=== PATIENT | male | born 1935 | race Caucasian/White ===

== ENCOUNTER 2018-04-14 20:39 | Emergency (ER) | payer MEDICARE, OTHER ==
[2018-04-14] MEDS ORDERED: AMIODARONE HCL INJ 150 MG/3 ML VIAL IV ONE (20:43)
--- NOTE | 2018-04-14 20:55 | ER Document Report ---
ED General - General Stated Complaint: DIZZINESS Time Seen by Provider: 04/14/18 20:54 Notes: Patient is an 83-year-old male with a past medical history of CHF, diabetes, who presents after becoming lightheaded and presyncopal. EMS was contacted and found the patient to be in monomorphic ventricular tachycardia without associated hypotension. An amiodarone infusion was initiated with termination of the rhythm. The patient does report that he has had a history of ventricular tachycardia once in the past but was not placed on any anti- arithmetic agents and did not have placement of an AICD. He states that no point today nor currently does he have any chest pain or shortness of breath. He states that he was sitting down when his symptoms started and there was no obvious trigger. He states that he does still feel somewhat tired but overall improved since receiving amiodarone. 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 - Related Data Allergies/Adverse Reactions: Cephalosporins Allergy (Unknown, Verified 04/14/18 21:05) clindamycin [Clindamycin] Allergy (Unknown, Verified 04/14/18 21:05) Iodinated Contrast- Oral and IV Dye [IV Dye, Iodine Containing] Allergy (Unknown , Verified 04/14/18 21:05) phenazopyridine HCl [From Pyridium] Allergy (Unknown, Verified 04/14/18 21:05) sildenafil citrate [From Viagra] Allergy (Unknown, Verified 04/14/18 21:05) temazepam [From Restoril] Allergy (Unknown, Verified 04/14/18 21:05) Fish Containing Products Allergy (Verified 04/14/18 21:05) seafood Allergy (Unknown, Uncoded 04/14/18 21:05) Past Medical History - General Information source: Patient, Emergency Med Personnel - Social History Smoking Status: Never Smoker Frequency of alcohol use: None Drug Abuse: None Lives with: Spouse/Significant other Family History: Reviewed & Not Pertinent - Past Medical History Cardiac Medical History: Reports: Hx Coronary Artery Disease, Hx DVT, Hx Heart Attack, Hx Hypercholesterolemia, Hx Hypertension Endocrine Medical History: Reports: Hx Diabetes Mellitus Type 2 Musculoskeletal Medical History: Reports Hx Arthritis - Immunizations Hx Diphtheria, Pertussis, Tetanus Vaccination: No Review of Systems - Review of Systems Notes: Constitutional: Negative for fever. HENT: Negative for sore throat. Eyes: Negative for visual changes. Cardiovascular: Positive for palpitations and near syncope Respiratory: Negative for shortness of breath. Gastrointestinal: Negative for abdominal pain, vomiting or diarrhea. Genitourinary: Negative for dysuria. Musculoskeletal: Negative for back pain. Skin: Negative for rash. Neurological: Negative for headaches, weakness or numbness. 10 point ROS negative except as marked above and in HPI. Physical Exam - Vital signs Vitals: Pulse Ox 100 04/14/18 20:39 Interpretation: Hypertensive Notes: PHYSICAL EXAMINATION: GENERAL: Appears mildly uncomfortable but in no acute distress HEAD: Atraumatic, normocephalic. EYES: Pupils equal round and reactive to light, extraocular movements intact, sclera anicteric, conjunctiva are normal. ENT: nares patent, oropharynx clear without exudates. Moderately dry mucous membranes. NECK: Normal range of motion, supple without lymphadenopathy LUNGS: Breath sounds clear to auscultation bilaterally and equal. No wheezes rales or rhonchi. HEART: Regular rate and rhythm without murmurs ABDOMEN: Soft, nontender, normoactive bowel sounds. No guarding, no rebound. No masses appreciated. EXTREMITIES: Normal range of motion, no pitting or edema. No cyanosis. NEUROLOGICAL: No focal neurological deficits. Moves all extremities spontaneously and on command. PSYCH: Normal mood, normal affect. SKIN: Warm, Dry, normal turgor, no rashes or lesions noted. Course - Re-evaluation Re-evalutation: 04/14/18 20:54 Patient presents after having been in ventricular tachycardia. He was given 150 mg of amiodarone in route of ventricle tachycardia. At no point was he hypotensive. The patient does have a known history of congestive heart failure and is apparently had ventricular tachycardia in the past but has never had any ICD placed and is not on anti-arrhythmic agents. At time my evaluation the patient appears somewhat pale but is otherwise alert and oriented. Vitals are initially within acceptable limits with the exception of mild hypertension at 147 and 83. The patient has been started on amiodarone infusion. EKG strips from paramedics have been reviewed and are consistent with monomorphic ventricular tachycardia. Labs will be obtained. Will obtain chest x-ray. Patient will likely require transfer to a facility capable of placing an AICD. He is in guarded condition and will require frequent reassessments. 04/14/18 21:25 Patient remains hemodynamically within normal limits. Does have intermittent PVCs but no recurrent runs of ventricular tachycardia. Continues on amiodarone infusion. Will continue to reassess at regular intervals. 04/14/18 22:33 I have spoken with Rocky Harvey the physician news assistant covering for the cardiology service at [facility]. He states that the patient has a normal ejection fraction of 55%. That he does have a history of monomorphic ventricular tachycardia in the past and is following with their clinic for this issue. He is advised that the patient does not require transfer , has recommended transition the patient to oral amiodarone and discharged home with follow-up in clinic on Sunday. The patient has remained asymptomatic at this point, remains well in appearance, vital signs are normal limits, labs including troponin are otherwise unremarkable. He has continued to deny chest pain. Will proceed with discharge per the advisement of the cardiology consultation with a prescription for amiodarone and request for follow-up on Sunday with cardiology. 04/15/18 2300 Patient appears much improved, sitting up in bed, talking with his . We have reviewed my consultation with the physician news assistant covering for cardiology at [facility]. I have advised them of the plan and they are quite comfortable with this, plan on following up with cardiology tomorrow as planned. No concerns regarding discharge. At this time will discharge with return precautions and follow-up recommendations. Verbal discharge instructions given a the bedside and opportunity for questions given. Medication warnings reviewed. Patient is in agreement with this plan and has verbalized understanding of return precautions and the need for cardiology follow-up tomorrow. - Vital Signs Vital signs: Temp Pulse Resp BP Pulse Ox 98.3 F 21 H 129/73 H 95 04/14/18 20:44 04/14/18 23:31 04/14/18 23:31 04/14/18 23:31 - Laboratory Result Diagrams: 04/14/18 20:46 04/14/18 20:46 Laboratory results interpreted by me: 04/14/18 04/14/18 20:46 20:46 RBC 4.17 L RDW 14.8 H Plt Count 126 L BUN 33 H Glucose 116 H - Diagnostic Test Radiology reviewed: Image reviewed, Reports reviewed Radiology results interpreted by me: 04/14/18 22:34 Chest x-ray: No acute infiltrate or pneumothorax - EKG Interpretation by Me Additional EKG results interpreted by me: 04/14/18 22:36 Sinus rhythm. Rate 76. No ST elevations or depressions. QTC is 441. Critical Care Note - Critical Care Note Total time excluding time spent on procedures (mins): 36 Comments: Critical care time spent obtaining history from patient or surrogate, discussions with consultants, development of treatment plan with patient or surrogate, evaluation of patient's response to treatment, examination of patient , ordering and performing treatments and interventions, ordering and review of laboratory studies, re-evaluation of patient's condition, ordering and review of radiographic studies and review of old charts Discharge - Discharge Clinical Impression: Ventricular tachycardia, Near syncope Congestive heart failure Qualifiers: Heart failure type: unspecified Heart failure chronicity: chronic Qualified Code(s): I50.9 - Heart failure, unspecified Condition: Good Disposition: HOME, SELF-CARE Additional Instructions: Your seen today for an episode of ventricular tachycardia. I have spoken with the cardiology group at [facility] and they have advised that she should be discharged home on a new medication called amiodarone and follow-up in the clinic tomorrow, 04/15. Please return to the emergency department immediately if you develop chest pain, pass out, develop shortness of breath, or have any other symptoms that are worrisome to you. Prescriptions: Amiodarone HCl [Cordarone 200 mg Tablet] 2 tab PO BID #90 tab Referrals: HAMMAD LIU MD [Primary Care Provider] - Follow up as needed
[2018-04-14 21:16] LABS: ABSOLUTE EOSINOPHILS # (AUTO) 0.1 10^3/uL (0.0-0.6); ABSOLUTE MONOCYTES (AUTO) 0.6 10^3/uL (0.1-1.4); ABSOLUTE NEUT (AUTO) 6.2 10^3/uL (1.7-8.2); BASOPHILS % (AUTO) 0.3 % (0-2); EOSINOPHILS % (AUTO) 0.9 % (0-6); HEMATOCRIT 39.8 % (37.9-51.0); HEMOGLOBIN 13.7 g/dL (13.5-17.0); LYMPHOCYTES % (AUTO) 22.4 % (13-45); MEAN CORPUSCULAR HEMOGLOBIN 32.9 pg (27.0-33.4); MEAN CORPUSCULAR HGB CONC 34.5 g/dL (32.0-36.0); MEAN CORPUSCULAR VOLUME 96 fl (80-97); MONOCYTES % (AUTO) 7.2 % (3-13); PLATELET COUNT 126 10^3/uL (150-450); RED BLOOD COUNT 4.17 10^6/uL (4.35-5.55); RED CELL DISTRIBUTION WIDTH 14.8 % (11.5-14.0); SEGMENTED NEUTROPHILS % (AUTO) 69.2 % (42-78); TOTAL CELLS COUNTED % (AUTO) 100 %; WHITE BLOOD COUNT 8.9 10^3/uL (4.0-10.5)
[2018-04-14 21:21] LABS: ALANINE AMINOTRANSFERASE 22 U/L (21-72); ALBUMIN 3.8 g/dL (3.5-5.0); ALKALINE PHOSPHATASE 90 U/L (38-126); ANION GAP 11 (5-19); ASPARTATE AMINO TRANSFERASE 23 U/L (17-59); BILIRUBIN,DIRECT 0.3 mg/dL (0.0-0.4); BILIRUBIN,TOTAL 0.4 mg/dL (0.2-1.3); BLOOD UREA NITROGEN 33 mg/dL (7-20); CALCIUM 9.4 mg/dL (8.4-10.2); CARBON DIOXIDE 29 mmol/L (22-30); CHLORIDE 101 mmol/L (98-107); CREATINE KINASE 58 U/L (55-170); GLUCOSE 116 mg/dL (75-110); INTERNATIONAL RATION (INR) 1.01; POTASSIUM 4.7 mmol/L (3.6-5.0); PROTHROMBIN TIME 13.8 SEC (11.4-15.4); SODIUM 141.1 mmol/L (137-145)
--- NOTE | 2018-04-14 21:26 | RADIOLOGY REPORT (SQ) ---
EXAM DESCRIPTION: XR CHEST 1 VIEW COMPLETED DATE/TME: 04/14/2018 21:03 CLINICAL HISTORY: 83 years, Male, VT converted to NSR COMPARISON: EXAM DESCRIPTION: CLINICAL HISTORY: VT converted to NSR COMPARISON: None. FINDINGS: Single view of the chest is submitted. Cardiac silhouette is normal. No focal parenchymal or pleural disease. No acute bony abnormality. There is no significant pulmonary vascular engorgement. IMPRESSION: No evidence of acute cardiopulmonary disease. NUMBER OF VIEWS: TECHNIQUE: LIMITATIONS: None. FINDINGS: IMPRESSION: 2010 [facility] [employer]- All Rights Reserved
[2018-04-14 21:32] LABS: CREATINE KINASE MB 2.84 ng/mL (<4.55); TROPONIN I 0.015 ng/mL
[2018-04-14] MEDS ORDERED: ASPIRIN 81 MG TABLET, CHEWABLE PO ONE (22:15)
[2018-04-14] MEDS ORDERED: AMIODARONE HCL 200 MG TABLET PO ONE (22:40)
--- NOTE | 2018-04-14 22:45 | EKG REPORT ---
SEVERITY:- ABNORMAL ECG - SINUS RHYTHM NONSPECIFIC INTRAVENTRICULAR CONDUCTION DELAY : Confirmed by: Miriam Torres MD 14-Apr-2018 22:45:22
[2018-04-14 23:42] VITALS: BP 129/73
== END 2018-04-14 23:55 | disposition home or self-care (01) ==
LOC: ER 20:39
DX: I47.2 Ventricular tachycardia (principal); I50.9 Heart failure, unspecified; R42 Dizziness and giddiness; E11.9 Type 2 diabetes mellitus without complications; Z79.899 Other long term (current) drug therapy; I25.10 Atherosclerotic heart disease of native coronary artery without angina pectoris; I10 Essential (primary) hypertension
CPT/HCPCS: 93005; 99291; 96374; 36415; 82553; 82550; 85025; 85610; 80053; 84484; 71045; 93010; A9270; J0282

== ENCOUNTER 2018-10-18 12:02 | Emergency (ER) | payer MEDICARE, OTHER ==
[2018-10-18] MEDS ORDERED: DEXTROSE 50%-WATER 25 GM/50 ML DISP.SYRIN IV ONE (12:45)
[2018-10-18 13:08] LABS: ALANINE AMINOTRANSFERASE 24 U/L (21-72); ALBUMIN 4.1 g/dL (3.5-5.0); ALCOHOL < 10 mg/dL (NONE DETECTED); ALKALINE PHOSPHATASE 90 U/L (38-126); ANION GAP 11 (5-19); ASPARTATE AMINO TRANSFERASE 28 U/L (17-59); BILIRUBIN,DIRECT 0.4 mg/dL (0.0-0.4); BILIRUBIN,TOTAL 0.5 mg/dL (0.2-1.3); BLOOD UREA NITROGEN 34 mg/dL (7-20); CALCIUM 9.5 mg/dL (8.4-10.2); CARBON DIOXIDE 26 mmol/L (22-30); CHLORIDE 104 mmol/L (98-107); POTASSIUM 4.8 mmol/L (3.6-5.0); SODIUM 140.7 mmol/L (137-145); TOTAL PROTEIN 7.2 g/dL (6.3-8.2)
[2018-10-18 13:10] LABS: GLUCOSE 64 mg/dL (75-110)
--- NOTE | 2018-10-18 13:25 | RADIOLOGY REPORT (SQ) ---
EXAM DESCRIPTION: CHEST SINGLE VIEW COMPLETED DATE/TIME: 10/18/2018 1:08 pm REASON FOR STUDY: hypoxia COMPARISON: 04/14/2018, 2007. NUMBER OF VIEWS: One view. TECHNIQUE: Single frontal radiographic view of the chest acquired. LIMITATIONS: None. FINDINGS: LUNGS AND PLEURA: Chronic scarring in the left base. No evidence of pneumonia. MEDIASTINUM AND HILAR STRUCTURES: No masses or contour abnormality. HEART AND VASCULATURE: Cardiac enlargement. Vascular congestion. BONES: No acute findings. HARDWARE: None in the chest. OTHER: No other significant finding. IMPRESSION: CARDIAC ENLARGEMENT. VASCULAR CONGESTION. TECHNICAL DOCUMENTATION: JOB ID: [id number] [employer]- All Rights Reserved Reading location - IP/workstation name: [email or web address]
--- NOTE | 2018-10-18 15:11 | ER Document Report ---
ED Blood Sugar Problem - General Chief Complaint: Low Blood Sugar Stated Complaint: ALTERED MENTAL STATUS Time Seen by Provider: 10/18/18 12:29 Primary Care Provider: HAMMAD LIU MD [Primary Care Provider] - Follow up as needed Mode of Arrival: Medic Information source: Patient, Relative Notes: Patient is a 83 year old male brought in to ER by EMS for AMS. Blood sugar by EMS on arrival was 35. Given D-10 25 mg and BS increased to 144. Patient became more alert states she gave insulin this am without taking BS. Gave 44 units of Lantus and 10 units of Novalog. EMS reported O2 Sat at 81% on arrival. Patient is oxygen dependant especially at night. Not on O2 on arrival. Patient also has history of severe dementia. HTN and COPD. TRAVEL OUTSIDE OF THE [place] IN LAST 30 DAYS: No - HPI Onset: Just prior to arrival Onset/Duration: Sudden Quality of pain: No pain Severity: Moderate Pain Level: 3 Insulin taken: Yes Glucose taken: No Associated symptoms: Confusion, Dry mucous membranes, Increased thirst, Nausea, Weakness - Related Data Allergies/Adverse Reactions: Cephalosporins Allergy (Unknown, Verified 04/14/18 21:05) clindamycin [Clindamycin] Allergy (Unknown, Verified 04/14/18 21:05) Iodinated Contrast- Oral and IV Dye [IV Dye, Iodine Containing] Allergy (Unkn own, Verified 04/14/18 21:05) phenazopyridine HCl [From Pyridium] Allergy (Unknown, Verified 04/14/18 21:05) sildenafil citrate [From Viagra] Allergy (Unknown, Verified 04/14/18 21:05) temazepam [From Restoril] Allergy (Unknown, Verified 04/14/18 21:05) Fish Containing Products Allergy (Verified 04/14/18 21:05) seafood Allergy (Unknown, Uncoded 04/14/18 21:05) Past Medical History - General Information source: Relative, [facility] Records - Social History Smoking Status: Former Smoker Cigarette use (# per day): No Chew tobacco use (# tins/day): No Smoking Education Provided: No Frequency of alcohol use: None Drug Abuse: None Lives with: Spouse/Significant other Family History: Reviewed & Not Pertinent Patient has suicidal ideation: No Patient has homicidal ideation: No - Past Medical History Cardiac Medical History: Reports: Hx Atrial Fibrillation, Hx Congestive Heart Failure, Hx Coronary Artery Disease, Hx DVT, Hx Heart Attack, Hx Hypercholesterolemia, Hx Hypertension Endocrine Medical History: Reports: Hx Diabetes Mellitus Type 2 Renal/ Medical History: Denies: Hx Peritoneal Dialysis Musculoskeletal Medical History: Reports Hx Arthritis Past Surgical History: Reports: Hx Abdominal Surgery - Immunizations Hx Diphtheria, Pertussis, Tetanus Vaccination: No Review of Systems - Review of Systems Constitutional: No symptoms reported EENT: No symptoms reported Cardiovascular: No symptoms reported Respiratory: No symptoms reported Gastrointestinal: No symptoms reported Genitourinary: No symptoms reported Male Genitourinary: No symptoms reported Musculoskeletal: No symptoms reported Skin: No symptoms reported Hematologic/Lymphatic: No symptoms reported Neurological/Psychological: No symptoms reported, Confusion, Dementia, Weakness Physical Exam - Vital signs Vitals: Resp Pulse Ox 17 86 L 10/18/18 12:07 10/18/18 12:07 Interpretation: Normal - General General appearance: Alert. No: Unresponsive In distress: None - HEENT Head: Normocephalic, Atraumatic Eyes: Normal Conjunctiva: Normal Cornea: Normal Extraocular movements intact: Yes Nerve palsy: No Visual garcia normal: Yes Ears: Normal Tympanic membrane: Normal Sinus: Normal Nasal: Normal Mouth/Lips: Normal Mucous membranes: Dry Pharynx: Normal Neck: Normal - Respiratory Respiratory status: No respiratory distress Chest status: Nontender Breath sounds: Normal. No: Rales, Rhonchi, Wheezing Chest palpation: Normal - Cardiovascular Rhythm: Regular Heart sounds: Normal auscultation Murmur: No Friction rub: No Benita's crunch: No - Abdominal Inspection: Normal Distension: No distension Bowel sounds: Normal Tenderness: Nontender Organomegaly: No organomegaly - Genitourinary Inspection: Normal Tenderness: Nontender Cremasteric reflex: Normal Scrotum: Normal - Back Back: Normal, Nontender. No: CVA tenderness - Extremities General upper extremity: Normal inspection, Nontender General lower extremity: Normal inspection, Nontender - Neurological Neuro grossly intact: Yes Cognition: Normal Orientation: AAOx4 [place] Coma Scale Eye Opening: Spontaneous [place] Coma Scale Verbal: Oriented Kajal Coma Scale Motor: Obeys Commands [place] Coma Scale Total: 15 Speech: Normal - Psychological Associated symptoms: Normal affect, Normal mood - Skin Skin Temperature: Warm Skin Moisture: Dry Skin Color: Normal, [place] Skin Turgor: Elastic Course - Re-evaluation Re-evalutation: 10/24/18 18:27 Patient responded to bolus of D5 and eating. Came back to normal base line per . insisted on going home and given the circumstances I feel it is OK to DC. - Vital Signs Vital signs: Temp Pulse Resp BP Pulse Ox 97.9 F 18 140/55 H 98 10/18/18 15:32 10/18/18 15:02 10/18/18 15:02 10/18/18 15:02 - Laboratory Result Diagrams: 10/18/18 12:17 10/18/18 12:17 Laboratory results interpreted by me: 10/18/18 10/18/18 12:17 14:19 BUN 34 H Creatinine 1.31 H Est GFR (Non-Af Amer) 52 L Glucose 64 L POC Glucose 193 H Discharge - Discharge Clinical Impression: Hypoglycemia Condition: Stable Disposition: HOME, SELF-CARE Instructions: Hypoglycemia ([facility]) Additional Instructions: You have recovered quite substantially from your 31 blood sugar level on arrival here. Highly important that you might check your blood sugars more frequently through the next 24 hours so this does not happen again. Hold your insulin tonight. Contact your primary care provider to readjust your medications if needed by tomorrow and you are still running low on your blood sugars. Is better to be a little high than it is to be low. Should you have any concerns or problems or should you have change in mental status again return to ER for recheck. Referrals: HAMMAD LIU MD [Primary Care Provider] - Follow up as needed
[2018-10-18 15:32] VITALS: BP 140/55
--- NOTE | 2018-10-18 19:27 | EKG REPORT ---
SEVERITY:- ABNORMAL ECG - SINUS RHYTHM NONSPECIFIC INTRAVENTRICULAR CONDUCTION DELAY PROBABLE INFERIOR INFARCT, OLD : Confirmed by: Miriam Torres MD 18-Oct-2018 19:27:12
== END 2018-10-18 15:32 | disposition home or self-care (01) ==
LOC: ER 12:02
DX: E11.649 Type 2 diabetes mellitus with hypoglycemia without coma (principal); Z79.4 Long term (current) use of insulin; I10 Essential (primary) hypertension; I25.10 Atherosclerotic heart disease of native coronary artery without angina pectoris; J44.9 Chronic obstructive pulmonary disease, unspecified; Z99.81 Dependence on supplemental oxygen; Z88.1 Allergy status to other antibiotic agents; Z91.041 Radiographic dye allergy status; Z88.6 Allergy status to analgesic agent; Z87.891 Personal history of nicotine dependence; Z88.8 Allergy status to other drugs, medicaments and biological substances; Z91.013 Allergy to seafood
CPT/HCPCS: 93005; 99284; 96374; 36415; 82962; 80307; 83735; 80053; 71045; 93010; J3490

== ENCOUNTER 2019-01-03 11:04 | Emergency (ER) | payer MEDICARE, OTHER ==
--- NOTE | 2019-01-03 12:23 | RADIOLOGY REPORT (SQ) ---
EXAM DESCRIPTION: HIP BILATERAL COMPLETED DATE/TIME: 01/03/2019 12:07 pm REASON FOR STUDY: rotation COMPARISON: None. NUMBER OF VIEWS: Two views TECHNIQUE: AP pelvis and additional frog-leg view of both hips. LIMITATIONS: None. FINDINGS: MINERALIZATION: Normal. HIPS: No acute fracture or dislocation. Joint space narrowing with sclerosis and osteophytes, worse in the right hip. No worrisome bone lesions. PELVIS AND SACRUM: No acute fracture or dislocation. No worrisome bone lesions. PUBIS AND ISCHIUM: No acute fracture. LOWER LUMBAR SPINE: Degenerative changes. No acute findings as visualized. SOFT TISSUES: No findings. OTHER: No other significant finding. IMPRESSION: DEGENERATIVE CHANGES IN THE HIPS, WORSE ON THE RIGHT. NO ACUTE FINDINGS. TECHNICAL DOCUMENTATION: JOB ID: [id number] [employer]- All Rights Reserved Reading location - IP/workstation name: [email or web address]
[2019-01-03 15:04] LABS: ABSOLUTE EOSINOPHILS # (AUTO) 0.1 10^3/uL (0.0-0.6); ABSOLUTE LYMPHOCYTES (AUTO) 0.9 10^3/uL (0.5-4.7); ABSOLUTE MONOCYTES (AUTO) 0.2 10^3/uL (0.1-1.4); ABSOLUTE NEUT (AUTO) 3.8 10^3/uL (1.7-8.2); EOSINOPHILS % (AUTO) 1.2 % (0-6); HEMATOCRIT 30.2 % (37.9-51.0); HEMOGLOBIN 10.2 g/dL (13.5-17.0); LYMPHOCYTES % (AUTO) 18.2 % (13-45); MEAN CORPUSCULAR HEMOGLOBIN 31.2 pg (27.0-33.4); MEAN CORPUSCULAR HGB CONC 33.7 g/dL (32.0-36.0); MEAN CORPUSCULAR VOLUME 92 fl (80-97); MONOCYTES % (AUTO) 4.3 % (3-13); RED BLOOD COUNT 3.26 10^6/uL (4.35-5.55); RED CELL DISTRIBUTION WIDTH 15.5 % (11.5-14.0); SEGMENTED NEUTROPHILS % (AUTO) 75.3 % (42-78); TOTAL CELLS COUNTED % (AUTO) 100 %
[2019-01-03 15:06] LABS: APPEARANCE,URINE CLEAR; BILIRUBIN,URINE NEGATIVE (NEGATIVE); COLOR,URINE STRAW; GLUCOSE, URINE >=500 mg/dL (NEGATIVE); KETONES,URINE NEGATIVE (NEGATIVE); LEUKOCYTE ESTERASE,URINE NEGATIVE (NEGATIVE); NITRITE,URINE NEGATIVE (NEGATIVE); PROTEIN,URINE NEGATIVE (NEGATIVE); URINE SPECIFIC GRAVITY 1.003; UROBILINOGEN,URINE NEGATIVE mg/dL (<2.0)
[2019-01-03 15:26] LABS: PLATELET COUNT 62 10^3/uL (150-450)
[2019-01-03 16:37] LABS: ALBUMIN 3.9 g/dL (3.5-5.0); ALKALINE PHOSPHATASE 115 U/L (38-126); ANION GAP 10 (5-19); ASPARTATE AMINO TRANSFERASE 21 U/L (17-59); BILIRUBIN,DIRECT 0.3 mg/dL (0.0-0.4); BILIRUBIN,TOTAL 0.4 mg/dL (0.2-1.3); BLOOD UREA NITROGEN 37 mg/dL (7-20); CALCIUM 9.4 mg/dL (8.4-10.2); CARBON DIOXIDE 27 mmol/L (22-30); CHLORIDE 94 mmol/L (98-107); GLUCOSE 302 mg/dL (75-110); TOTAL PROTEIN 6.8 g/dL (6.3-8.2)
[2019-01-03 16:42] LABS: POTASSIUM 6.1 mmol/L (3.6-5.0)
[2019-01-03 17:09] VITALS: BP 155/69
--- NOTE | 2019-01-03 17:53 | ER Document Report ---
ED General - General Chief Complaint: Hip Injury Stated Complaint: RIGHT HIP PAIN Time Seen by Provider: 01/03/19 11:43 Primary Care Provider: HAMMAD MELVIN MD [Primary Care Provider] - Follow up as needed Notes: Patient took a shower and was being assisted out of the shower by his when his legs gave out and he fell, landing primarily on the left hip but complaining of pain in the right hip more than the left at this time. He has a long- standing history of weakness and difficulty ambulating and uses either a walker or a wheelchair to get around. He has not been any different than usual for him recently. Denies any other injuries except the hips. Patient has a history of anemia. He had blood drawn by his primary care provider about 3 days ago and the was called about the results of the hemo globin and the platelet count, both of which were low. I have spoken with Dr. Melvin in [facility] internal medicine who is the patient's primary care provider. He says that the patient had a hemoglobin of 10.9 earlier this week and his platelet count was 73,000. He has no obvious bleeding such as black stools, etc. Reviewing these lab results with Dr. Melvin show that the patient's actually had low platelets since about May of this year. He also had a hemoglobin of about 12.4 this past spring. However, he did have a value as low as 11.3 earlier this year. TRAVEL OUTSIDE OF THE [place] IN LAST 30 DAYS: No - Related Data Allergies/Adverse Reactions: Cephalosporins Allergy (Unknown, Verified 04/14/18 21:05) clindamycin [Clindamycin] Allergy (Unknown, Verified 04/14/18 21:05) Iodinated Contrast Media [IV Dye, Iodine Containing] Allergy (Unknown, Verified 04/14/18 21:05) phenazopyridine HCl [From Pyridium] Allergy (Unknown, Verified 04/14/18 21:05) sildenafil citrate [From Viagra] Allergy (Unknown, Verified 04/14/18 21:05) temazepam [From Restoril] Allergy (Unknown, Verified 04/14/18 21:05) Fish Containing Products Allergy (Verified 04/14/18 21:05) seafood Allergy (Unknown, Uncoded 04/14/18 21:05) Past Medical History - Social History Smoking Status: Former Smoker Frequency of alcohol use: None Drug Abuse: None Family History: Reviewed & Not Pertinent Patient has suicidal ideation: No Patient has homicidal ideation: No - Past Medical History Cardiac Medical History: Reports: Hx Atrial Fibrillation, Hx Congestive Heart Failure, Hx Coronary Artery Disease, Hx DVT, Hx Heart Attack, Hx Hypercholesterolemia, Hx Hypertension Pulmonary Medical History: Reports: Hx COPD Endocrine Medical History: Reports: Hx Diabetes Mellitus Type 2 Malignancy Medical History: Reports Hx Prostate Cancer, Reports Other - Bladder cancer Musculoskeletal Medical History: Reports Hx Arthritis Past Surgical History: Reports: Hx Abdominal Surgery, Hx Genitourinary Surgery, Hx Orthopedic Surgery - back surgery - Immunizations Hx Diphtheria, Pertussis, Tetanus Vaccination: No Review of Systems - Review of Systems Notes: REVIEW OF SYSTEMS: CONSTITUTIONAL : Denies fever. Has had weakness for a long time. EENT: Denies eye, ear, nose or mouth or throat pain or other symptoms. CARDIOVASCULAR: Denies chest pain. RESPIRATORY: Denies cough, chest congestion, or shortness of breath. GASTROINTESTINAL: Denies abdominal pain or nausea, vomiting, or diarrhea. GENITOURINARY: Denies difficulty or painful urinating, urinary frequency, blood in urine. MUSCULOSKELETAL: Denies back or neck pain. Says he has pain in both hips. SKIN: Denies rash or skin lesions. NEUROLOGICAL: Denies LOC or altered mental status. Denies headache. Denies sensory loss or motor deficits. ALL OTHER SYSTEMS REVIEWED AND NEGATIVE. Physical Exam - Vital signs Vitals: Temp Pulse Resp BP Pulse Ox 97.7 F 64 20 160/63 H 96 01/03/19 11:11 01/03/19 11:11 01/03/19 11:11 01/03/19 11:11 01/03/19 11:11 Interpretation: Normal Notes: PHYSICAL EXAMINATION: GENERAL: Well-appearing, in no acute distress. HEAD: Atraumatic, normocephalic. EYES: Pupils equal round and reactive to light, extraocular movements intact. ENT: oropharynx clear without exudates. Moist mucous membranes. NECK: Normal range of motion, supple. LUNGS: Breath sounds clear and equal bilaterally. HEART: Regular rate and rhythm without murmurs. ABDOMEN: Soft, nontender. No guarding or rebound. No masses. BACK: No tenderness throughout entire back. EXTREMITIES: Normal range of motion without pain. Does not have very much disc omfort to palpate firmly over both femoral heads and to internally and externally rotate both legs. NEUROLOGICAL: Normal speech, unable to stand and walk at this time. Normal sensory, motor, and reflex exams. Awake, alert, and oriented x3. History of some degree of dementia. SKIN: Warm, dry, no rashes. Course - Re-evaluation Re-evalutation: 01/03/19 18:13 When patient's potassium came back at 6.1, I began inquiring from the patient and his and found that the patient is on potassium supplement has been on it for years. In addition, he had blood work done earlier this week and the got a call saying that the potassium was too high and she was to cut his potassium from twice a day to once a day. I have advised her to stop his potassium entirely until Sunday and call his doctor on Sunday to get further advice at that time. I am questioning whether he needs to be on any potassium at all. Patient's EKG shows no evidence of the effects of high potassium. He has a EKG showing normal sinus rhythm, old inferior infarct, and intraventricular conduction defect of uncertain type. - Vital Signs Vital signs: Temp Pulse Resp BP Pulse Ox 98.0 F 65 20 155/69 H 95 01/03/19 17:36 01/03/19 17:36 01/03/19 11:11 01/03/19 17:01 01/03/19 17:36 - Laboratory Result Diagrams: 01/03/19 14:44 01/03/19 16:15 Laboratory results interpreted by me: 01/03/19 01/03/19 01/03/19 14:44 14:44 16:15 RBC 3.26 L Hgb 10.2 L Hct 30.2 L RDW 15.5 H Plt Count 62 L Sodium 130.5 L Potassium 6.1 H* Chloride 94 L BUN 37 H Creatinine 1.40 H Est GFR ( Amer) 59 L Est GFR (Non-Af Amer) 48 L Glucose 302 H Urine Glucose (UA) >=500 H - Diagnostic Test Radiology results interpreted by me: 01/03/19 18:16 X-ray of the hips and pelvis show no fractures or dislocations. - EKG Interpretation by Tx EKG shows normal: Sinus rhythm Rate: Normal Rhythm: NSR [place]/QRS: IVCD Additional EKG results interpreted by me: 01/03/19 18:18 EKG does not show any evidence of hyper hyperkalemia. Discharge - Discharge Clinical Impression: Fall, Contusion, hip, Weakness, Hyperkalemia Condition: Stable Disposition: HOME, SELF-CARE Additional Instructions: Contusion Hip Your injury has resulted in a contusion -- a crushing of the deep tissues. No injury to important structures was detected during the physician's exam. Contusions vary in the amount of pain they cause, and in the length of time re quired for healing. Typically, the area will become bruised, and will remain painful to touch for two or three weeks. However, most patients are back to working and playing within a few days. After the initial period of rest and cold-packs, your symptoms (together with the doctor's recommendations) will determine how rapidly you can get back to full activity. Usually this means "do what feels okay, but don't do things that hurt." If re-examination was recommended, it's important to follow up as instructed. Call the doctor or return any time if pain increases, if swelling becomes severe, if you develop numbness or weakness in an injured extremity, or if any other alarming symptoms occur. Weakness We did not find a definite cause for your weakness. This may require furth er medical tests. Weakness can be caused by infection, physical exhaustion, rapid weight loss, dehydration, or medicine side effects. Diseases of the muscles, heart, nerves, and blood vessels can make you weak. Sometimes the problem is simply depression or lack of exercise. You should get plenty of rest. Unless the doctor tells you otherwise, it's usually best to add short periods of regular mild exercise. Eat a nutritious diet with multiple small, low-sugar meals. If symptoms continue, additional medical evaluation will be necessary. Be sure to follow up as instructed. If you become very dizzy, nauseated, or feel like you're going to faint, lie down right away. Wait until the symptoms have passed before you get up again. Stand up slowly. Call the doctor or return if you develop chest pain, abdominal pain, severe headache, irregular heartbeat or very fast pulse, confusion, vision problems, fever, muscular pain, or any other new symptom. Hyperkalemia: Your potassium level is too high. Stop taking all of your potassium pills and take none until you contact your doctors Sunday to see if you should resume taking it at all. It will not hurt you to stop taking the potassium over this weekend. It may also help your weakness that she is been experiencing. Your hemoglobin was 10.2 and you do not need a transfusion unless your hemoglobin drops down to about 7.5, may be 8.o. Your platelet count was in the 60s which is just a slight bit lower than it was earlier in the week. FOLLOW-UP CARE: If you have been referred to a physician for follow-up care, call the physicians office for an appointment as you were instructed or within the next two days. If you experience worsening or a significant change in your symptoms, notify the physician immediately or return to the Emergency Department at any time for re-evaluation. Contact your doctor's office on Sunday morning to see if they want you to resume taking her potassium. Do not take any potassium until you speak with your doctors on Sunday. Referrals: HAMMAD MELVIN MD [Primary Care Provider] - Follow up as needed
--- NOTE | 2019-01-04 10:21 | EKG REPORT ---
SEVERITY:- ABNORMAL ECG - SINUS RHYTHM NONSPECIFIC INTRAVENTRICULAR CONDUCTION DELAY PROBABLE INFERIOR INFARCT, OLD : Confirmed by: Carlin Benedict 04-Jan-2019 10:21:43
== END 2019-01-03 17:57 | disposition home or self-care (01) ==
LOC: ER 11:04
DX: S70.01XA Contusion of right hip, initial encounter (principal); R53.1 Weakness; E87.5 Hyperkalemia; W18.39XA Other fall on same level, initial encounter; Y93.E1 Activity, personal bathing and showering; Y92.002 Bathroom of unspecified non-institutional (private) residence as the place of occurrence of the external cause; I48.91 Unspecified atrial fibrillation; I50.9 Heart failure, unspecified; I25.10 Atherosclerotic heart disease of native coronary artery without angina pectoris; E78.00 Pure hypercholesterolemia, unspecified; I11.0 Hypertensive heart disease with heart failure; J44.9 Chronic obstructive pulmonary disease, unspecified; E11.9 Type 2 diabetes mellitus without complications; Z86.718 Personal history of other venous thrombosis and embolism; Z88.3 Allergy status to other anti-infective agents
CPT/HCPCS: 36415; 73522; 80053; 81001; 85025; 93005; 93010; 99284

== ENCOUNTER 2020-05-19 05:08 | Inpatient (IN) | payer MEDICARE, OTHER ==
[2020-05-19] MEDS ORDERED: NORMAL SALINE 1000 ML 1,000 ML IV ONE (07:25)
[2020-05-19] MEDS ORDERED: ACETAMINOPHEN 325 MG TABLET PO ONE (07:27)
--- NOTE | 2020-05-19 07:53 | ER Document Report ---
Entered by DANY CLARKE SCRIBE 05/19/20 0717 Acting as scribe for:ESTELLA COELHO MD ED General - General Chief Complaint: Altered Mental Status Stated Complaint: ALTERED MENTAL STATUS Time Seen by Provider: 05/19/20 07:11 Mode of Arrival: Medic Information source: Emergency Med Personnel Notes: This 85 year old male patient with a history of dementia, hypertension, hyperlipidemia, CAD, A fib, CHF, COPD, and type 2 diabetes mellitus presents to the ED today via EMS for evaluation of altered mental status and shortness of breath that started just prior to arrival. Per nursing note, the patient's states that the patient had an episode of confusion and that it is usually attributed to dehydration. The is COVID positive and the patient tested positive yesterday. Patient's O2 saturation at home was 88% on room air, so EMS placed the patient on 3L supplemental oxygen via [place] with improvement to 95%. EMS reports a temperature of 97.8, but when he got here his temperature was 101.7. TRAVEL OUTSIDE OF THE [place] IN LAST 30 DAYS: No - Related Data Allergies/Adverse Reactions: Cephalosporins Allergy (Unknown, Verified 05/19/20 14:34) clindamycin [Clindamycin] Allergy (Unknown, Verified 05/19/20 14:34) Iodinated Contrast Media [IV Dye, Iodine Containing] Allergy (Unknown, Verified 05/19/20 14:34) phenazopyridine HCl [From Pyridium] Allergy (Unknown, Verified 05/19/20 14:34) sildenafil citrate [From Viagra] Allergy (Unknown, Verified 05/19/20 14:34) temazepam [From Restoril] Allergy (Unknown, Verified 05/19/20 14:34) Fish Containing Products Allergy (Verified 05/19/20 14:34) seafood Allergy (Unknown, Uncoded 05/19/20 14:34) Past Medical History - General Information source: Relative - , [facility] Records - Social History Smoking Status: Former Smoker Cigarette use (# per day): No Chew tobacco use (# tins/day): No Smoking Education Provided: No Lives with: Spouse/Significant other Family History: Reviewed & Not Pertinent - Past Medical History Cardiac Medical History: Reports: Hx Atrial Fibrillation, Hx Congestive Heart Failure, Hx Coronary Artery Disease, Hx DVT, Hx Heart Attack, Hx Hypercholesterolemia, Hx Hypertension Pulmonary Medical History: Reports: Hx COPD Endocrine Medical History: Reports: Hx Diabetes Mellitus Type 2 Malignancy Medical History: Reports Hx Prostate Cancer Musculoskeletal Medical History: Reports Hx Arthritis Past Surgical History: Reports: Hx Abdominal Surgery, Hx Genitourinary Surgery, Hx Orthopedic Surgery - back surgery - Immunizations Hx Diphtheria, Pertussis, Tetanus Vaccination: No Review of Systems - Review of Systems -: Yes ROS unobtainable due to patient's medical condition - Hx of Dementia, confused Physical Exam - Vital signs Vitals: Temp 101.7 F H 05/19/20 05:09 - General General appearance: Alert, Other - Confused In distress: None - HEENT Head: Normocephalic, Atraumatic Eyes: Normal Extraocular movements intact: Yes Pupils: PERRL Mucous membranes: Dry Neck: Normal, Supple - Respiratory Respiratory status: Tachypnea Chest status: Nontender Breath sounds: Normal Chest palpation: Normal - Cardiovascular Rhythm: Regular Heart sounds: Normal auscultation Murmur: No Friction rub: No Gallop: None auscultated - Abdominal Inspection: Morbidly Obese Distension: No distension Bowel sounds: Normal Tenderness: Nontender - Abdomen soft Organomegaly: No organomegaly - Back Back: Normal, Nontender - Extremities General upper extremity: Normal inspection General lower extremity: Other - There is a orthoglass type splint on the right lower extremity. It is unclear why the patient has it. - Neurological Cognition: Confused - Psychological Associated symptoms: Confused - Skin Skin Temperature: Warm Skin Moisture: Dry Skin Color: Normal Course - Re-evaluation Re-evalutation: 05/19/20 12:55 The patient was evaluated during the global COVID-19 pandemic and that diagnosis was suspected/considered upon their initial presentation. Their evaluation, treatment and testing was consistent with current guidelines for patients who present with complaints or symptoms that may be related to COVID-19. - Vital Signs Vital signs: Temp Pulse Resp BP Pulse Ox 99.5 F 65 25 H 126/51 H 96 05/19/20 09:04 05/19/20 10:28 05/19/20 15:01 05/19/20 15:01 05/19/20 15:01 - Laboratory Results Result Diagrams: 05/19/20 08:08 05/19/20 08:08 Laboratory Results Interpreted: 05/19/20 05/19/20 05/19/20 08:08 08:08 08:08 WBC 2.7 L RBC 3.12 L Hgb 9.5 L Hct 28.0 L RDW 16.2 H Plt Count 52 L D-Dimer 8.86 H Sodium 130.8 L Potassium 5.6 H BUN 48 H Creatinine 2.26 H Est GFR ( Amer) 34 L Est GFR (MDRD) Non-Af 28 L Glucose 134 H Calcium 8.3 L Lactate Dehydrogenase 258 H C-Reactive Protein 40.9 H NT-Pro-B Natriuret Pep Albumin 3.4 L 05/19/20 08:08 WBC RBC Hgb Hct RDW Plt Count D-Dimer Sodium Potassium BUN Creatinine Est GFR ( Amer) Est GFR (MDRD) Non-Af Glucose Calcium Lactate Dehydrogenase C-Reactive Protein NT-Pro-B Natriuret Pep 1280 H Albumin Critical Laboratory Results Reviewed: Yes Attending or Supervising Physician who Reviewed Labs: ESTELLA COELHO - Elevated BUN, creatinine, potassium - Radiology Results Radiology Results Interpreted: 05/19/20 09:06 Chest x-ray shows stable cardiomegaly. Critical Radiology Results Reviewed: No Critical Results - EKG Interpretation by Me EKG shows normal: Sinus rhythm, [place], Intervals, QRS Complexes, ST-T Waves Rate: Normal - 76 Rhythm: NSR Discharge - Discharge Clinical Impression: COVID-19 with multiple comorbidities, Dehydration, Acute kidney injury superimposed on chronic kidney disease, Hypoxemia Condition: Fair Disposition: ADMITTED INPATIENT Admitting Provider: Sammy (Hospitalist) Unit Admitted: IMCU I personally performed the services described in the documentation, reviewed and edited the documentation which was dictated to the scribe in my presence, and it accurately records my words and actions.
--- NOTE | 2020-05-19 08:15 | RADIOLOGY REPORT (SQ) ---
EXAM DESCRIPTION: CHEST SINGLE VIEW IMAGES COMPLETED DATE/TIME: 05/19/2020 7:43 am REASON FOR STUDY: Covid positive, fever, confusion COMPARISON: 10/18/2018 EXAM PARAMETERS: NUMBER OF VIEWS: One view. TECHNIQUE: Single frontal radiographic view of the chest acquired. RADIATION DOSE: NA LIMITATIONS: None. FINDINGS: LUNGS AND PLEURA: Mild prominence of basilar lung markings stable from prior exam. No foc al consolidation. No definite effusions. MEDIASTINUM AND HILAR STRUCTURES: No masses. Contour normal. HEART AND VASCULAR STRUCTURES: Stable cardiomegaly. BONES: No acute findings. HARDWARE: None in the chest. OTHER: No other significant finding. IMPRESSION: Stable cardiomegaly. No interval change from 10/18/2018. TECHNICAL DOCUMENTATION: JOB ID: [id number] [employer]- All Rights Reserved Reading location - IP/workstation name: [email or web address]
[2020-05-19 08:50] LABS: ABSOLUTE LYMPHOCYTES (AUTO) 0.6 10^3/uL (0.5-4.7); ABSOLUTE MONOCYTES (AUTO) 0.3 10^3/uL (0.1-1.4); ABSOLUTE NEUT (AUTO) 1.8 10^3/uL (1.7-8.2); BASOPHILS % (AUTO) 1.1 % (0-2); EOSINOPHILS % (AUTO) 0.3 % (0-6); HEMOGLOBIN 9.5 g/dL (13.5-17.0); LYMPHOCYTES % (AUTO) 22.4 % (13-45); MEAN CORPUSCULAR HEMOGLOBIN 30.3 pg (27.0-33.4); MEAN CORPUSCULAR HGB CONC 33.8 g/dL (32.0-36.0); MEAN CORPUSCULAR VOLUME 90 fl (80-97); MONOCYTES % (AUTO) 9.4 % (3-13); RED BLOOD COUNT 3.12 10^6/uL (4.35-5.55); RED CELL DISTRIBUTION WIDTH 16.2 % (11.5-14.0); SEGMENTED NEUTROPHILS % (AUTO) 66.8 % (42-78); TOTAL CELLS COUNTED % (AUTO) 100 %; WHITE BLOOD COUNT 2.7 10^3/uL (4.0-10.5)
[2020-05-19 09:02] LABS: ALBUMIN 3.4 g/dL (3.5-5.0); ALKALINE PHOSPHATASE 102 U/L (38-126); ANION GAP 5 (5-19); ASPARTATE AMINO TRANSFERASE 24 U/L (17-59); BILIRUBIN,DIRECT 0.1 mg/dL (0.0-0.4); BILIRUBIN,TOTAL 0.4 mg/dL (0.2-1.3); BLOOD UREA NITROGEN 48 mg/dL (7-20); C-REACTIVE PROTEIN 40.9 mg/L (<10.0); CALCIUM 8.3 mg/dL (8.4-10.2); CARBON DIOXIDE 28 mmol/L (22-30); CHLORIDE 98 mmol/L (98-107); CREATINE KINASE 59 U/L (55-170); GLUCOSE 134 mg/dL (75-110); POTASSIUM 5.6 mmol/L (3.6-5.0); TOTAL PROTEIN 6.5 g/dL (6.3-8.2)
[2020-05-19 09:11] LABS: TROPONIN I 0.024 ng/mL
[2020-05-19 09:20] LABS: PLATELET COUNT 52 10^3/uL (150-450)
[2020-05-19] MEDS ORDERED: LEVALBUTEROL HCL NEB 0.63 MG/3 ML AMPUL NEB PRN (11:24)
[2020-05-19] MEDS ORDERED: DEXTROSE 50%-WATER 25 GM/50 ML DISP.SYRIN IV PRN ×2 (11:49)
[2020-05-19] MEDS ORDERED: GLUCAGON,HUMAN RECOMB 1 MG INJ IM PRN (11:49)
[2020-05-19] MEDS ORDERED: DEXTROSE 40% GEL 15 GM TUBE PO PRN ×2 (11:49)
--- NOTE | 2020-05-19 11:50 | PDOC H&P ---
History of Present Illness Admission Date/PCP: HAMMAD LIU MD Patient complains of: Brought in by family members with complaints of altered mental status. History of Present Illness: THANG PICKARD is a 85 year old male history of congestive heart failure, A. fib, coronary artery disease, COPD, type 2 diabetes mellitus, hypertension, dementia was tested positive for COVID-19 yesterday brought to the emergency room by family members with altered mental status. EMS found him hypoxic pulse ox is documented around 88%. In the emergency room he was placed on 2 L of oxygen. Chest x-ray shows cardiomegaly. Past Medical History Cardiac Medical History: Reports: Atrial Fibrillation, Congestive Heart Failure, Coronary Artery Disease, DVT, Myocardial Infarction, Hyperlipidema, Hypertension Pulmonary Medical History: Reports: Chronic Obstructive Pulmonary Disease (COPD) Endocrine Medical History: Reports: Diabetes Mellitus Type 2 Musculoskeltal Medical History: Reports: Arthritis Past Surgical History Past Surgical History: Reports: Orthopedic Surgery - back surgery Social History Lives with: Spouse/Significant other Smoking Status: Former Smoker Electronic Cigarette use?: No Frequency of Alcohol Use: None Hx Recreational Drug Use: No Hx Prescription Drug Abuse: No - Advance Directive Resuscitation Status: Full Code Family History Family History: Reviewed & Not Pertinent Parental Family History Reviewed: Yes - Family history of hypertension, diabetes mellitus. Children Family History Reviewed: Yes Sibling(s) Family History Reviewed.: Yes Medication/Allergy Home Medications: Amiodarone HCl [Cordarone 200 mg Tablet] 2 tab PO BID #90 tab 04/14/18 Amitriptyline HCl [Elavil 50 Mg Tablet] 100 mg PO TID 04/14/18 Ascorbic Acid [Vitamin C 500 mg Tablet] 1,000 mg PO DAILY 04/14/18 Aspirin [Adult Aspirin] 81 mg PO DAILY 04/14/18 Carvedilol [Coreg 25 mg Tablet] 1 tab PO BID 04/14/18 Cholecalciferol (Vitamin D3) [Vitamin D3 1000 Unit Tablet] 1,000 unit PO DAILY 04/14/18 Cyanocobalamin (Vitamin B-12) [Vitamin B-12 Inj 1000 Mcg/1 ml Vial] 1,000 mcg IM .MONTHLY 04/14/18 Fluticasone/Salmeterol [Advair 100-50 Diskus 14 Dose/Diskus] 1 inh IH Q12H 04/14/18 Furosemide [Lasix 40 mg Tablet] 40 mg PO DAILY 04/14/18 Insulin Aspart [Novolog Flexpen] 10 unit SQ NOON 04/14/18 Insulin Aspart [Novolog Flexpen] 20 unit SQ BID 04/14/18 Insulin Glargine,Hum.rec.anlog [Lantus Insulin Inj 300 Unit/3 ml Pen] 44 unit SUBCUT BID 04/14/18 Metformin HCl 1,000 mg PO BID 04/14/18 Polyethylene Glycol 4500 1 gm MC DAILY 04/14/18 Potassium Chloride [Klor-Con 10 Meq Capsule ER] 10 meq PO BID 04/14/18 Ramipril [Altace 10 mg Capsule] 1 cap PO QHS 04/14/18 Spironolactone [Aldactone 25 mg Tablet] 25 mg PO DAILY 04/14/18 Thiamine Mononitrate [Vitamin B-1] 100 mg PO DAILY 04/14/18 Vitamin E (Dl,Tocopheryl Acet) [Vitamin E] 200 unit PO DAILY 04/14/18 Allergies/Adverse Reactions: Cephalosporins Allergy (Unknown, Verified 04/14/18 21:05) clindamycin [Clindamycin] Allergy (Unknown, Verified 04/14/18 21:05) Iodinated Contrast Media [IV Dye, Iodine Containing] Allergy (Unknown, Verified 04/14/18 21:05) phenazopyridine HCl [From Pyridium] Allergy (Unknown, Verified 04/14/18 21:05) sildenafil citrate [From Viagra] Allergy (Unknown, Verified 04/14/18 21:05) temazepam [From Restoril] Allergy (Unknown, Verified 04/14/18 21:05) Fish Containing Products Allergy (Verified 04/14/18 21:05) seafood Allergy (Unknown, Uncoded 04/14/18 21:05) Review of Systems Constitutional: PRESENT: fatigue, fever(s), weakness. ABSENT: headache(s) Eyes: ABSENT: visual disturbances Ears: ABSENT: hearing changes Nose, Mouth, and Throat: ABSENT: sore throat Cardiovascular: PRESENT: dyspnea on exertion Respiratory: PRESENT: dyspnea Gastrointestinal: ABSENT: abdominal pain, constipation, diarrhea, hematemesis, h ematochezia, nausea, vomiting Neurological: ABSENT: abnormal gait, abnormal speech, confusion, dizziness, focal weakness, syncope Psychiatric: ABSENT: anxiety, depression, homidical ideation, suicidal ideation Endocrine: ABSENT: cold intolerance, heat intolerance, polydipsia, polyuria Physical Exam Vital Signs: Temp Pulse Resp BP Pulse Ox 99.5 F 65 24 H 140/65 H 91 L 05/19/20 09:04 05/19/20 10:28 05/19/20 11:01 05/19/20 11:01 05/19/20 11:01 Intake & Output 05/18/20 05/19/20 05/20/20 06:59 06:59 06:59 Intake Total 1000 Balance 1000 Weight 120.202 kg General appearance: PRESENT: no acute distress, cooperative, morbidly obese, well-developed Head exam: PRESENT: atraumatic Eye exam: PRESENT: PERRLA Ear exam: PRESENT: normal external ear exam Mouth exam: PRESENT: neck supple Teeth exam: PRESENT: poor dentation Neck exam: ABSENT: carotid bruit, JVD, lymphadenopathy, thyromegaly Respiratory exam: PRESENT: decreased breath sounds Cardiovascular exam: PRESENT: RRR. ABSENT: diastolic murmur, rubs, systolic murmur GI/Abdominal exam: PRESENT: normal bowel sounds, soft. ABSENT: distended, guarding, mass, organolmegaly, rebound, tenderness Rectal exam: PRESENT: deferred Extremities exam: PRESENT: full ROM. ABSENT: calf tenderness, clubbing, pedal edema Neurological exam: PRESENT: alert, awake, oriented to person, oriented to place, oriented to time, oriented to situation, CN II-XII grossly intact. ABSENT: motor sensory deficit Skin exam: PRESENT: dry, intact, warm. ABSENT: cyanosis, rash Results Laboratory Results: 05/19/20 08:08 05/19/20 08:08 05/19/20 05/19/20 08:08 08:08 WBC 2.7 L RBC 3.12 L Hgb 9.5 L Hct 28.0 L MCV 90 MCH 30.3 MCHC 33.8 RDW 16.2 H Plt Count 52 L Seg Neutrophils % 66.8 Sodium 130.8 L Potassium 5.6 H Chloride 98 Carbon Dioxide 28 Anion Gap 5 BUN 48 H Creatinine 2.26 H Est GFR ( Amer) 34 L Glucose 134 H Calcium 8.3 L Magnesium 2.3 Ferritin 67.90 Total Bilirubin 0.4 AST 24 Alkaline Phosphatase 102 C-Reactive Protein 40.9 H Total Protein 6.5 Albumin 3.4 L 05/19/20 05/19/20 08:08 08:08 Creatine Kinase 59 Troponin I 0.024 NT-Pro-B Natriuret Pep 1280 H Impressions: Chest X-Ray 05/19/20 07:21 IMPRESSION: Stable cardiomegaly. No interval change from 10/18/2018. Assessment and Plan - Diagnosis (1) COVID-19 with multiple comorbidities Is this a current diagnosis for this admission?: Yes Plan: 05/18/2020-patient is going to be admitted with COVID-19 pneumonia associated with acute hypoxic respiratory failure requiring oxygen supplementation. Patient be started on convulsant plasma, remdesivir, dexamethasone, multivitamins, IV Rocephin, Zithromax. Patient will be placed on treatment dose of Lovenox. GI prophylaxis will be initiated CT of the chest will be requested. (2) Acute kidney injury superimposed on chronic kidney disease Is this a current diagnosis for this admission?: Yes Plan: 05/19/2020-patient's baseline creatinine is around 1.6. On admission it is 2.26. Acute kidney injury most likely secondary to prerenal causes. (3) Morbid obesity Is this a current diagnosis for this admission?: No Plan: 05/19/2020-patient BMI is more than 37. Diet exercise weight loss lifestyle modifications discussed with the patient. (4) Diabetes Qualifiers: Diabetes mellitus type: type 2 Is this a current diagnosis for this admission?: No Plan: 05/19/2020-patient has history of type 2 diabetes mellitus. He is on insulin, metformin at home. To place him on a diabetic diet, insulin sliding scale. To hold metformin at this time. - Time Anticipated Discharge Disposition: Home, Self Care Anticipated Discharge Timeframe: 5 days
[2020-05-19 13:25] LABS: APPEARANCE,URINE CLEAR; BILIRUBIN,URINE NEGATIVE (NEGATIVE); COLOR,URINE STRAW; GLUCOSE, URINE NEGATIVE (NEGATIVE); KETONES,URINE NEGATIVE (NEGATIVE); LEUKOCYTE ESTERASE,URINE NEGATIVE (NEGATIVE); NITRITE,URINE NEGATIVE (NEGATIVE); PROTEIN,URINE NEGATIVE (NEGATIVE); URINE SPECIFIC GRAVITY 1.005; UROBILINOGEN,URINE NEGATIVE mg/dL (<2.0)
[2020-05-19] MEDS: CEFTRIAXONE 1 GM/D5W RTU 1 GM/50 ML RTUPB IV SCH (13:33)
[2020-05-19] MEDS: AMITRIPTYLINE HCL 50 MG TABLET PO SCH ×2 (14:46→19:55)
[2020-05-19] MEDS: AZITHROMYCIN 500 MG in DEXTROSE 5%-WATER 250 ML IV SCH (14:47)
[2020-05-19] MEDS ORDERED: SODIUM POLYSTYRENE SULFONATE 15 GM/60 ML PO ONE (16:30)
[2020-05-19] MEDS: PANTOPRAZOLE SODIUM 40 MG TABLET.DR PO SCH (16:33)
[2020-05-19] MEDS: INSULIN LISPRO 100 UNIT/ML 3 ML VIAL SUBCUT SCH ×2 (16:39→23:27)
--- NOTE | 2020-05-19 17:58 | EKG REPORT ---
SEVERITY:- NORMAL ECG - SINUS RHYTHM : Confirmed by: Robert Tatum MD 19-May-2020 17:57:14
[2020-05-19] MEDS: AMIODARONE HCL 200 MG TABLET PO SCH (19:55)
[2020-05-19] MEDS: ASCORBIC ACID 500 MG TABLET PO SCH (20:04)
[2020-05-19] MEDS: CARVEDILOL 12.5 MG TABLET PO SCH (20:06)
[2020-05-19] MEDS: ENOXAPARIN SODIUM INJ 120 MG/0.8 ML DISP.SYRIN SUBCUT SCH (23:02)
[2020-05-20] MEDS: PANTOPRAZOLE SODIUM 40 MG TABLET.DR PO SCH ×2 (05:20→17:06)
[2020-05-20 06:48] LABS: C-REACTIVE PROTEIN 59.7 mg/L (<10.0)
[2020-05-20 07:21] LABS: FERRITIN 84.7 ng/mL (17.9-464.0)
[2020-05-20] MEDS: ENOXAPARIN SODIUM INJ 120 MG/0.8 ML DISP.SYRIN SUBCUT SCH ×2 (09:39→23:02)
[2020-05-20] MEDS: CEFTRIAXONE 1 GM/D5W RTU 1 GM/50 ML RTUPB IV SCH (09:49)
[2020-05-20] MEDS: INSULIN LISPRO 100 UNIT/ML 3 ML VIAL SUBCUT SCH ×4 (09:49→23:06)
[2020-05-20] MEDS: POLYETHYLENE GLYCOL 3350 POWDER 17 GM/1 PACKET PO SCH (09:49)
[2020-05-20] MEDS: FLUTICASONE/VILANTEROL 200-25 MCG/DOSE IH SCH (09:49)
[2020-05-20] MEDS: DEXAMETHASONE SOD PHOS INJ 10 MG/1 ML VIAL IV SCH (09:49)
[2020-05-20] MEDS: ZINC SULFATE 220 MG CAPSULE PO SCH (09:50)
[2020-05-20] MEDS: ASCORBIC ACID 500 MG TABLET PO SCH ×2 (09:50→17:06)
[2020-05-20] MEDS: ASPIRIN 81 MG TABLET, ENT COATED PO SCH (09:50)
[2020-05-20] MEDS: FUROSEMIDE 40 MG TABLET PO SCH (09:51)
[2020-05-20] MEDS: AMIODARONE HCL 200 MG TABLET PO SCH ×2 (09:51→17:06)
[2020-05-20] MEDS: MULTIVITAMIN TABLET PO SCH (09:51)
[2020-05-20] MEDS: CARVEDILOL 12.5 MG TABLET PO SCH ×2 (09:51→17:06)
[2020-05-20] MEDS: AMITRIPTYLINE HCL 50 MG TABLET PO SCH ×3 (09:51→17:06)
[2020-05-20] MEDS ORDERED: AZITHROMYCIN INJ 500 MG VIAL IV SCH (10:00)
[2020-05-20] MEDS ORDERED: CARVEDILOL 25 MG PO SCH (10:00)
[2020-05-20] MEDS ORDERED: (PENDING PHARMACY ID) (Fluticasone/Salmeterol 14 INH/INHALER Inhaler) IH SCH (10:00)
[2020-05-20] MEDS ORDERED: ONDANSETRON HCL INJ/PF 4 MG/2 ML SDV IV PRN (10:19)
--- NOTE | 2020-05-20 10:23 | PDOC PROGRESS REPORT ---
Subjective Date:: 05/20/20 Subjective:: 85 year old male history of congestive heart failure, A. fib, coronary artery di sease, COPD, type 2 diabetes mellitus, hypertension, dementia was tested positive for COVID-19 yesterday brought to the emergency room by family members with altered mental status. EMS found him hypoxic pulse ox is documented around 88%. In the emergency room he was placed on 2 L of oxygen. Chest x-ray shows cardiomegaly. [birth year]/20/[id number]-[id number]-old male with multiple medical problems admitted for COVID-19 pneumonia. Patient is on 2 L of oxygen at home this morning pulse ox is around 98% on 2 L. Discussed the care plan with patient's Ivone she is planning to take him home tomorrow. Reason For Visit: COVID 19 Physical Exam Vital Signs: Temp Pulse Resp BP Pulse Ox 98.1 F 78 18 132/70 H 98 05/20/20 08:03 05/20/20 08:03 05/20/20 08:03 05/20/20 08:03 05/20/20 09:03 Intake & Output 05/19/20 05/20/20 05/21/20 06:59 06:59 06:59 Intake Total 1300 Output Total 575 Balance 725 Weight 120.202 kg 119.4 kg General appearance: PRESENT: no acute distress, cooperative, morbidly obese Head exam: PRESENT: atraumatic Eye exam: PRESENT: PERRLA Ear exam: PRESENT: normal external ear exam Teeth exam: PRESENT: poor dentation Neck exam: ABSENT: carotid bruit, JVD, lymphadenopathy, thyromegaly Respiratory exam: PRESENT: decreased breath sounds Cardiovascular exam: PRESENT: RRR. ABSENT: diastolic murmur, rubs, systolic murmur GI/Abdominal exam: PRESENT: normal bowel sounds, soft. ABSENT: distended, guarding, mass, organolmegaly, rebound, tenderness Rectal exam: PRESENT: deferred Extremities exam: PRESENT: full ROM, +1 edema, other - Chronic changes in the lower extremities.. ABSENT: calf tenderness, clubbing, pedal edema Neurological exam: PRESENT: alert, awake, oriented to person, oriented to place, oriented to time, oriented to situation, CN II-XII grossly intact. ABSENT: motor sensory deficit Results Laboratory Results: 05/19/20 08:08 05/19/20 08:08 05/19/20 05/19/20 05/20/20 13:00 13:35 05:47 Ferritin 84.70 C-Reactive Protein 59.7 H Urine Color STRAW Urine Appearance CLEAR Urine pH 6.0 Ur Specific Patterson 1.005 Urine Protein NEGATIVE Urine Glucose (UA) NEGATIVE Urine Ketones NEGATIVE Urine Blood SMALL H Urine Nitrite NEGATIVE Ur Leukocyte Esterase NEGATIVE Urine WBC (Auto) 0 Urine RBC (Auto) 4 Blood Type O POSITIVE 05/19/20 05/19/20 05/19/20 08:08 08:08 13:35 Creatine Kinase 59 Troponin I 0.024 0.043 NT-Pro-B Natriuret Pep 1280 H Impressions: Chest X-Ray 05/19/20 07:21 IMPRESSION: Stable cardiomegaly. No interval change from 10/18/2018. Assessment and Plan - Diagnosis (1) COVID-19 with multiple comorbidities Is this a current diagnosis for this admission?: Yes Plan: 05/19/2020-patient is going to be admitted with COVID-19 pneumonia associated with acute hypoxic respiratory failure requiring oxygen supplementation. Patient be started on convulsant plasma, remdesivir, dexamethasone, multivitamins, IV Rocephin, Zithromax. Patient will be placed on treatment dose of Lovenox. GI prophylaxis will be initiated CT of the chest will be requested. [id number]-old male with multiple medical problems admitted with COVID- 19 pneumonia. Doing well. Patient's does not want convulsant plasma. He is getting dexamethasone, vitamin supplementations. Patient is already on Eliquis. Family wants to take him home tomorrow. (2) Acute kidney injury superimposed on chronic kidney disease Is this a current diagnosis for this admission?: Yes Plan: 05/19/2020-patient's baseline creatinine is around 1.6. On admission it is 2.26. Acute kidney injury most likely secondary to prerenal causes. 05/19/2020-patient came in with a serum creatinine of 2.2. Baseline creatinine is 1.6. Today's labs are pending. Plan is to closely monitor the kidney function on daily basis. (3) Morbid obesity Is this a current diagnosis for this admission?: No Plan: 05/19/2020-patient BMI is more than 37. Diet exercise weight loss lifestyle modifications discussed with the patient. (4) Diabetes Qualifiers: Diabetes mellitus type: type 2 Is this a current diagnosis for this admission?: No Plan: 05/19/2020-patient has history of type 2 diabetes mellitus. He is on insulin, metformin at home. To place him on a diabetic diet, insulin sliding scale. To hold metformin at this time. 05/20/2020-patient has history of type 2 diabetes mellitus. Latest blood sugar is 150. - Time Anticipated Discharge Disposition: Home, Self Care Anticipated Discharge Timeframe: within 24 hours
[2020-05-20 11:05] LABS: ABSOLUTE LYMPHOCYTES (AUTO) 0.6 10^3/uL (0.5-4.7); ABSOLUTE MONOCYTES (AUTO) 0.3 10^3/uL (0.1-1.4); ABSOLUTE NEUT (AUTO) 2.2 10^3/uL (1.7-8.2); BASOPHILS % (AUTO) 0.2 % (0-2); EOSINOPHILS % (AUTO) 0.2 % (0-6); HEMATOCRIT 29.7 % (37.9-51.0); HEMOGLOBIN 10.1 g/dL (13.5-17.0); LYMPHOCYTES % (AUTO) 20.1 % (13-45); MEAN CORPUSCULAR HEMOGLOBIN 30.4 pg (27.0-33.4); MEAN CORPUSCULAR HGB CONC 33.9 g/dL (32.0-36.0); MEAN CORPUSCULAR VOLUME 90 fl (80-97); MONOCYTES % (AUTO) 10.2 % (3-13); RED BLOOD COUNT 3.31 10^6/uL (4.35-5.55); RED CELL DISTRIBUTION WIDTH 16.5 % (11.5-14.0); SEGMENTED NEUTROPHILS % (AUTO) 69.3 % (42-78); TOTAL CELLS COUNTED % (AUTO) 100 %; WHITE BLOOD COUNT 3.1 10^3/uL (4.0-10.5)
[2020-05-20 11:22] LABS: ALBUMIN 3.3 g/dL (3.5-5.0); ALKALINE PHOSPHATASE 96 U/L (38-126); ANION GAP 11 (5-19); ASPARTATE AMINO TRANSFERASE 35 U/L (17-59); BILIRUBIN,DIRECT 0.3 mg/dL (0.0-0.4); BILIRUBIN,TOTAL 0.7 mg/dL (0.2-1.3); BLOOD UREA NITROGEN 41 mg/dL (7-20); CALCIUM 8.6 mg/dL (8.4-10.2); CARBON DIOXIDE 20 mmol/L (22-30); CHLORIDE 104 mmol/L (98-107); GLUCOSE 144 mg/dL (75-110); POTASSIUM 4.7 mmol/L (3.6-5.0); TOTAL PROTEIN 6.3 g/dL (6.3-8.2)
[2020-05-20 11:24] LABS: PLATELET COUNT 52 10^3/uL (150-450)
[2020-05-20] MEDS: AZITHROMYCIN 500 MG in DEXTROSE 5%-WATER 250 ML IV SCH (13:40)
[2020-05-20] MEDS ORDERED: RAMIPRIL 10 MG CAPSULE PO SCH (22:00)
[2020-05-20] MEDS ORDERED: HYDROCODONE/ACETAMINOPHEN 10-325 MG TABLET PO SCH (22:00)
[2020-05-21] MEDS: PANTOPRAZOLE SODIUM 40 MG TABLET.DR PO SCH ×2 (05:28→19:32)
[2020-05-21 07:00] LABS: HEMATOCRIT 29.8 % (37.9-51.0); HEMOGLOBIN 10.1 g/dL (13.5-17.0); MEAN CORPUSCULAR HEMOGLOBIN 30.4 pg (27.0-33.4); MEAN CORPUSCULAR HGB CONC 33.8 g/dL (32.0-36.0); MEAN CORPUSCULAR VOLUME 90 fl (80-97); RED BLOOD COUNT 3.31 10^6/uL (4.35-5.55); RED CELL DISTRIBUTION WIDTH 16.5 % (11.5-14.0)
[2020-05-21 07:22] LABS: ALBUMIN 3.2 g/dL (3.5-5.0); ALKALINE PHOSPHATASE 87 U/L (38-126); ANION GAP 8 (5-19); ASPARTATE AMINO TRANSFERASE 47 U/L (17-59); BILIRUBIN,DIRECT 0.3 mg/dL (0.0-0.4); BILIRUBIN,TOTAL 0.5 mg/dL (0.2-1.3); BLOOD UREA NITROGEN 48 mg/dL (7-20); C-REACTIVE PROTEIN 60.2 mg/L (<10.0); CALCIUM 8.7 mg/dL (8.4-10.2); CARBON DIOXIDE 25 mmol/L (22-30); CHLORIDE 102 mmol/L (98-107); GLUCOSE 272 mg/dL (75-110); TOTAL PROTEIN 6.3 g/dL (6.3-8.2)
[2020-05-21 07:51] LABS: ABSOLUTE LYMPHOCYTES# (MANUAL) 0.3 10^3/uL (0.5-4.7); BASOPHILS % (MANUAL) 0 % (0-2); EOSINOPHILS % (MANUAL) 0 % (0-6); LYMPHOCYTES % (MANUAL) 22 % (13-45); MONOCYTES % (MANUAL) 2 % (3-13); NUCLEATED RED BLOOD CELLS 2 /100 WBC (0); SEGMENTED NEUTROPHILS % (MAN) 76 % (42-78); TOTAL CELLS COUNTED 50
[2020-05-21 07:53] LABS: ANISOCYTOSIS 1+; POIKILOCYTOSIS SLIGHT; POLYCHROMASIA SLIGHT; TOXIC VACUOLATION PRESENT
[2020-05-21 07:54] LABS: OVALOCYTES 1+; TEAR DROP CELLS SLIGHT
[2020-05-21 07:57] LABS: PLATELET COMMENT DECREASED; PLATELET COUNT 58 10^3/uL (150-450)
[2020-05-21 07:58] LABS: WHITE BLOOD COUNT 1.4 10^3/uL (4.0-10.5)
[2020-05-21] MEDS: INSULIN LISPRO 100 UNIT/ML 3 ML VIAL SUBCUT SCH ×3 (08:50→19:32)
[2020-05-21 12:05] VITALS: BP 163/86
[2020-05-21] MEDS: CARVEDILOL 12.5 MG TABLET PO SCH ×2 (12:23→19:32)
[2020-05-21] MEDS: AMIODARONE HCL 200 MG TABLET PO SCH ×2 (12:24→19:32)
[2020-05-21] MEDS: ASCORBIC ACID 500 MG TABLET PO SCH ×2 (12:24→19:33)
[2020-05-21] MEDS: ZINC SULFATE 220 MG CAPSULE PO SCH (12:24)
[2020-05-21] MEDS: ASPIRIN 81 MG TABLET, ENT COATED PO SCH (12:24)
[2020-05-21] MEDS: FUROSEMIDE 40 MG TABLET PO SCH (12:24)
[2020-05-21] MEDS: MULTIVITAMIN TABLET PO SCH (12:25)
[2020-05-21] MEDS: DEXAMETHASONE SOD PHOS INJ 10 MG/1 ML VIAL IV SCH (12:25)
[2020-05-21] MEDS: ENOXAPARIN SODIUM INJ 120 MG/0.8 ML DISP.SYRIN SUBCUT SCH (12:26)
[2020-05-21] MEDS: FLUTICASONE/VILANTEROL 200-25 MCG/DOSE IH SCH (12:26)
[2020-05-21] MEDS: AMITRIPTYLINE HCL 50 MG TABLET PO SCH ×3 (12:26→19:33)
[2020-05-21] MEDS: POLYETHYLENE GLYCOL 3350 POWDER 17 GM/1 PACKET PO SCH (12:27)
[2020-05-21] MEDS: CEFTRIAXONE 1 GM/D5W RTU 1 GM/50 ML RTUPB IV SCH (12:27)
[2020-05-21] MEDS: AZITHROMYCIN 500 MG in DEXTROSE 5%-WATER 250 ML IV SCH (13:16)
[2020-05-21 17:03] LABS: APPEARANCE,URINE SLIGHTLY-CLOUDY; BILIRUBIN,URINE NEGATIVE (NEGATIVE); COLOR,URINE YELLOW; GLUCOSE, URINE NEGATIVE (NEGATIVE); KETONES,URINE NEGATIVE (NEGATIVE); LEUKOCYTE ESTERASE,URINE NEGATIVE (NEGATIVE); NITRITE,URINE NEGATIVE (NEGATIVE); PROTEIN,URINE 100 mg/dL (NEGATIVE); URINE SPECIFIC GRAVITY 1.012; UROBILINOGEN,URINE NEGATIVE mg/dL (<2.0)
[2020-05-24 11:42] LABS: PATH REVIEW PATHOLOGIST REVIEWED
--- NOTE | 2020-06-01 18:37 | Left Against Medical Advice ---
Against Medical Advice Admission Date/Time: 05/19/20 11:53 Primary Care Provider: HAMMAD LIU MD Date of Patient Emigration: 05/21/20 - Diagnosis: (1) COVID-19 with multiple comorbidities Is this a current diagnosis for this admission?: Yes (2) Acute kidney injury superimposed on chronic kidney disease Is this a current diagnosis for this admission?: Yes (3) Morbid obesity Is this a current diagnosis for this admission?: No (4) Diabetes Is this a current diagnosis for this admission?: No - Summary: Summary: Please see Admission and Progress Notes as well. THANG PICKARD is a 85 M, who LEFT AGAINST MEDICAL ADVICE. The Patient was admitted on 05/19/20 11:53. (1) COVID-19 with multiple comorbidities Is this a current diagnosis for this admission?: Yes Plan: 05/18/2020-patient is going to be admitted with COVID-19 pneumonia associated with acute hypoxic respiratory failure requiring oxygen supplementation. Patient be started on convulsant plasma, remdesivir, dexamethasone, multivitamins, IV Rocephin, Zithromax. Patient will be placed on treatment dose of Lovenox. GI prophylaxis will be initiated CT of the chest will be requested. [id number]-old male with multiple medical problems admitted with COVID- 19 pneumonia. Doing well. Patient's does not want convulsant plasma. He is getting dexamethasone, vitamin supplementations. Patient is already on Eliquis. Family wants to take him home tomorrow. 05/21/20- pt signed AMA left the hospital.. (2) Acute kidney injury superimposed on chronic kidney disease Is this a current diagnosis for this admission?: Yes Plan: 05/19/2020-patient's baseline creatinine is around 1.6. On admission it is 2.26. Acute kidney injury most likely secondary to prerenal causes. 05/20/20--patient came in with a serum creatinine of 2.2. Baseline creatinine is 1.6. Today's labs are pending. Plan is to closely monitor the kidney function on daily basis. (3) Morbid obesity Is this a current diagnosis for this admission?: No Plan: 05/19/2020-patient BMI is more than 37. Diet exercise weight loss lifestyle modifications discussed with the patient. (4) Diabetes Qualifiers: Diabetes mellitus type: type 2 Is this a current diagnosis for this admission?: No Plan: 05/19/2020-patient has history of type 2 diabetes mellitus. He is on insulin, metformin at home. To place him on a diabetic diet, insulin sliding scale. To hold metformin at this time. 05/20/20-05/20/2020-patient has history of type 2 diabetes mellitus. Latest blood sugar is 150.
== END 2020-05-21 18:56 | disposition left against medical advice (07) | DRG 177 ==
LOC: ER 05:08 → EH 11:53 → 3S 22:32
PROVIDERS: ADMIT Internal Medicine; ATTEND Internal Medicine
PROC: 5A09457 Assistance with Respiratory Ventilation, 24-96 Consecutive Hours, Continuous Positive Airway Pressure (ICD-10-PCS; principal; 2020-05-19)
DX: U07.1 COVID-19 (principal); J12.82 Pneumonia due to coronavirus disease 2019; N17.9 Acute kidney failure, unspecified; J44.0 Chronic obstructive pulmonary disease with (acute) lower respiratory infection; I25.10 Atherosclerotic heart disease of native coronary artery without angina pectoris; E78.5 Hyperlipidemia, unspecified; F03.90 Unspecified dementia, unspecified severity, without behavioral disturbance, psychotic disturbance, mood disturbance, and anxiety; N18.9 Chronic kidney disease, unspecified; E66.01 Morbid (severe) obesity due to excess calories; E11.22 Type 2 diabetes mellitus with diabetic chronic kidney disease; R09.02 Hypoxemia; I12.9 Hypertensive chronic kidney disease with stage 1 through stage 4 chronic kidney disease, or unspecified chronic kidney disease; I25.2 Old myocardial infarction; Z68.37 Body mass index [BMI] 37.0-37.9, adult; Z86.718 Personal history of other venous thrombosis and embolism; Z87.891 Personal history of nicotine dependence; Z79.899 Other long term (current) drug therapy; Z79.4 Long term (current) use of insulin; Z79.82 Long term (current) use of aspirin; Z88.3 Allergy status to other anti-infective agents; Z91.041 Radiographic dye allergy status; Z88.8 Allergy status to other drugs, medicaments and biological substances; Z88.6 Allergy status to analgesic agent; Z91.013 Allergy to seafood; Z83.3 Family history of diabetes mellitus; Z82.49 Family history of ischemic heart disease and other diseases of the circulatory system; Z85.46 Personal history of malignant neoplasm of prostate
CPT/HCPCS: 0202U; 36415; 71045; 80053; 81001; 82550; 82728; 82962; 83615; 83735; 83880; 84484; 85025; 85379; 86140; 86900; 86901; 87040; 93005; 93010; 94660; 99285; J0456; J0696; J1100; J1815; J2405; J3490; J7030; J7060